=== PATIENT | female | born 1995 ===

== ENCOUNTER 2023-01-24 12:33 | Inpatient (IN) | payer OTHER ==
[~2023-01-24] VITALS: Ht 165.1 cm; Wt 3.2 kg
[2023-01-31] MEDS ORDERED: SYNTHROID125 MCG PO (15:55)
[2023-02-16] MEDS ORDERED: VITATRUE COMBO1 EACH PO (08:59)
== END 2023-02-18 17:33 | disposition home or self-care (01) | DRG 785 ==
LOC: OB/GYN 02-16 07:00 → O/R 02-16 07:42 → OB/GYN 02-16 07:42
PROVIDERS: ADMIT Obstetrics & Gynecology; ATTEND Obstetrics & Gynecology
PROC: 0UB70ZZ Excision of Bilateral Fallopian Tubes, Open Approach (ICD-10-PCS; 2023-02-16)
PROC: 0UB00ZZ Excision of Right Ovary, Open Approach (ICD-10-PCS; 2023-02-16)
PROC: 4A1HXCZ Monitoring of Products of Conception, Cardiac Rate, External Approach (ICD-10-PCS; 2023-02-16)
PROC: 10D00Z1 Extraction of Products of Conception, Low, Open Approach (ICD-10-PCS; principal; 2023-02-16 07:00)
DX: O34.211 Maternal care for low transverse scar from previous cesarean delivery (principal); Z3A.39 39 weeks gestation of pregnancy; O34.83 Maternal care for other abnormalities of pelvic organs, third trimester; D27.0 Benign neoplasm of right ovary; Z37.0 Single live birth; Z30.2 Encounter for sterilization; Z20.822 Contact with and (suspected) exposure to COVID-19